=== PATIENT | female | born 1945 | race Caucasian/White ===

== ENCOUNTER 2020-04-08 10:22 | Outpatient (CLI) | payer OTHER, SELFPAY ==
--- NOTE | ~2020-04-08 | MM_ITS ---
EXAMINATION: MM screening janice BI w javon HISTORY: Screening mammogram TECHNIQUE: Craniocaudal and mediolateral oblique 3-D tomosynthesis images were obtained and synthetic 2-D images were generated. CAD analysis was submitted and interpreted. COMPARISON: 03/31/2019, 03/29/2018, 03/26/2017 bilateral digital screening mammogram examinations BREAST PARENCHYMAL COMPOSITION: There are scattered areas of fibroglandular density. FINDINGS: There is no evidence of suspicious mass, calcification, or architectural distortion to sugg est malignancy in either breast. There has been no suspicious interval change. IMPRESSION: 1. No mammographic evidence of malignancy. 2. Recommend routine screening mammography in one year. BI-RADS Category 1: Negative Reviewed, dictated and finalized at location A. L SANDER
== END 2020-04-08 10:23 | disposition home or self-care (01) ==
LOC: ANHIMG 10:26
PROVIDERS: PCP Internal Medicine; Visit Provider Obstetrics & Gynecology
DX: Z12.31 Encounter for screening mammogram for malignant neoplasm of breast (principal)
CPT/HCPCS: 77063; 77067

== ENCOUNTER → 2021-02-08 01:54 | Outpatient (CLI) | payer OTHER, SELFPAY ==
[2021-02-08 17:55] LABS: SARS-CoV-2 RNA PCR Negative
[2021-02-08 19:27] LABS: Influenza Control Positive
== END ==
PROVIDERS: PCP Internal Medicine; Visit Provider Internal Medicine
DX: R68.89 Other general symptoms and signs (principal); Z20.822 Contact with and (suspected) exposure to COVID-19
CPT/HCPCS: 87804; C9803; U0003; U0005

== ENCOUNTER → 2021-02-09 12:06 | Outpatient (CLI) | payer OTHER, SELFPAY ==
--- NOTE | ~2021-02-09 | XR_ITS ---
EXAMINATION: XR chest 2V EXAM DATE: 02/09/2021 12:18 INDICATION: R06.02 - Shortness of breath . TECHNIQUE: Frontal and lateral projections of the chest obtained and reviewed. Comparison is made to prior examination from 08/18/2014. FINDINGS: The lungs are clear. There are no pleural effusions. The cardiomediastinal silhouette is borderline in size. There is no pneumothorax suspected. The bones and soft tissues are unremarkable . There is no significant interval change. IMPRESSION: No acute cardiopulmonary findings. Reviewed, dictated and finalized at location A. CAL CODING TECHNICIAN
== END ==
PROVIDERS: PCP Internal Medicine; Visit Provider Nurse Practitioner
DX: R06.02 Shortness of breath (principal)
CPT/HCPCS: 71046

== ENCOUNTER 2021-04-26 08:01 | Outpatient (CLI) | payer OTHER, SELFPAY ==
--- NOTE | ~2021-04-26 | MM_ITS ---
EXAMINATION: MM screening janice BI w javon HISTORY: Screening TECHNIQUE: Craniocaudal and mediolateral oblique 3-D tomosynthesis images were obtained and synthetic 2-D images were generated. CAD analysis was submitted and interpreted. COMPARISON: Comparison to multiple prior studies sequentially, with oldest reviewed study dated 06/2015. BREAST PARENCHYMAL COMPOSITION: The breasts are almost entirely fatty. FINDINGS: There is no evidence of suspicious mass, calcification, or architectural distortion to sugg est malignancy in either breast. There has been no suspicious interval change. IMPRESSION: 1. No mammographic evidence of malignancy. 2. Recommend routine screening mammography in one year. BI-RADS Category 1: Negative Reviewed, dictated and finalized at location A. PATTERN REPAIRER
== END 2021-04-26 08:02 | disposition home or self-care (01) ==
LOC: ANHIMG 08:04
PROVIDERS: PCP Internal Medicine; Visit Provider Obstetrics & Gynecology
DX: Z12.31 Encounter for screening mammogram for malignant neoplasm of breast (principal)
CPT/HCPCS: 77063; 77067

== ENCOUNTER → 2021-08-11 12:17 | Outpatient (CLI) | payer OTHER, SELFPAY ==
--- NOTE | ~2021-08-11 | XR_ITS ---
EXAMINATION: XR lumbar spine 2-3V DATE: 08/11/2021 12:48 INDICATION: Dorsalgia TECHNIQUE: Standing AP, lateral and coned-down lateral lumbosacral views of the lumbar spine were obt ained. COMPARISON: 07/02/2014 FINDINGS: Increased now approximately 20 degrees lumbar levoscoliosis with partially visualized mild compensato ry lower thoracic dextrocurvature. 5 mm retrolisthesis L1 on L2, 3 mm anterolisthesis L4 on L5 and 5 mm anterolisthesis L5 on S1. Interval progression of moderate to severe disc height loss at L2-L3, mo derate to severe right-sided predominant disc height loss at L3-L4 and L4-L5 and moderate disc height loss at L5-S1. Mild bilateral hip and sacroiliac osteoarthritis. IMPRESSION: 1. Interval progression of both a mild S-shaped thoracolumbar scoliosis and moderate to severe spondy losis. Reviewed, dictated and finalized at location B. IMPRESSION: 1. Interval progression of both a mild S-shaped thoracolumbar scoliosis and mod erate to severe spondylosis.
== END ==
PROVIDERS: PCP Internal Medicine; Visit Provider Internal Medicine
DX: M16.0 Bilateral primary osteoarthritis of hip (principal); M47.898 Other spondylosis, sacral and sacrococcygeal region
CPT/HCPCS: 72100

== ENCOUNTER 2022-05-18 14:59 | Outpatient (CLI) | payer OTHER, SELFPAY ==
--- NOTE | ~2022-05-18 | MM_ITS ---
EXAMINATION: MM screening janice BI w javon HISTORY: Screening mammogram TECHNIQUE: Craniocaudal and mediolateral oblique 3-D tomosynthesis images were obtained and synthetic 2-D images were generated. CAD analysis was submitted and interpreted. COMPARISON: April 2021, April 08, 2020, March 31, 2019 bilateral screening mammogram examinati ons BREAST PARENCHYMAL COMPOSITION: There are scattered areas of fibroglandular density. FINDINGS: There is no evidence of suspicious mass, calcification, or architectural distortion to sugg est malignancy in either breast. There has been no suspicious interval change. IMPRESSION: 1. No mammographic evidence of malignancy. 2. Recommend routine screening mammography in one year. BI-RADS Category 1: Negative Reviewed, dictated and finalized at location A. NCT PROFESSOR OF ENGLISH
== END 2022-05-18 15:00 | disposition home or self-care (01) ==
PROVIDERS: PCP Internal Medicine; Visit Provider Obstetrics & Gynecology
DX: Z12.31 Encounter for screening mammogram for malignant neoplasm of breast (principal)
CPT/HCPCS: 77063; 77067

== ENCOUNTER 2023-07-24 09:36 | Outpatient (CLI) | payer OTHER, SELFPAY ==
--- NOTE | ~2023-07-24 | MM_ITS ---
EXAMINATION: MM screening janice BI w javon HISTORY: Screening mammogram TECHNIQUE: Craniocaudal and mediolateral oblique 3-D tomosynthesis images were obtained and synthetic 2-D images were generated. CAD analysis was submitted and interpreted. COMPARISON: 05/18/2022, 04/26/2021 bilateral screening mammogram examinations BREAST PARENCHYMAL COMPOSITION: There are scattered areas of fibroglandular density. FINDINGS: There is no evidence of suspicious mass, calcification, or architectural distortion to sugg est malignancy in either breast. There has been no suspicious interval change. IMPRESSION: 1. No mammographic evidence of malignancy. 2. Recommend routine screening mammography in one year. BI-RADS Category 1: Negative Reviewed, dictated and finalized at location B.
== END 2023-07-24 09:37 | disposition home or self-care (01) ==
PROVIDERS: PCP Family Medicine; Visit Provider Obstetrics & Gynecology
DX: Z12.31 Encounter for screening mammogram for malignant neoplasm of breast (principal)
CPT/HCPCS: 77063; 77067

== ENCOUNTER 2023-11-26 10:12 | Outpatient (CLI) | payer OTHER, SELFPAY ==
--- NOTE | ~2023-11-26 | DEXA_ITS ---
Bone Density Report Name: ALEX HOFFMAN Age: 78 Sex: Female Ethnicity: White Date of : 1945 Indication: postmenopausal; screening for osteoporosis; height loss; Referring Provider: LISSET BRODY Study: Bone densitometry was performed. Exam Date: November 26, 2023 Accession number: [id number] Bone Density: Region BMD T-score Z-score Classification AP Spine(L1-L4) 1.093 0.4 2.9 Normal Femoral Neck (Left) 0.613 -2.1 0.1 Osteopenia Total Hip (Left) 0.816 -1.0 0.9 Normal Femoral Neck (Right) 0.668 -1.6 0.5 Osteopenia Total Hip (Right) 0.831 -0.9 1.0 Normal Total Hip Mean 0.824 -1.0 1.0 Normal World Health Organization criteria for BMD impression classify patients as: Normal (T-score at or above -1.0), Osteopenia (T-score between -1.0 and -2.5), or Osteoporosis (T-score at or below -2.5). 10-year Fracture Risk(1): Major Osteoporotic Fracture 12% Hip Fracture 3.0% Reported Risk Factors: [place] (), Neck BMD=0.613, BMI=45.2 Input outside FRAX(R) limits. Adjusted to:Gwqcyl=147 kg (1) FRAX(R) Version 3.08. Fracture probability calculated for an untreated patient. Fracture probability may be lower if the patient has received treatment. Clinical Information Provided by Patient: Has used the following medications: Vitamin D, Calcium Patient maximum height was 68.0 No regular weight bearing exercise Drinks caffeinated beverages Onset of menses at age 14 Number of children 0 Impression: The patient has low bone mass, based on the Left Femoral Neck T-score. The patient has an estimated ten-year risk of hip fracture of 3% and an estimated ten-year risk of major fracture of 12%, based on the WHO FRAX algorithm. Discussion: BONE DENSITY IS LOW AT ONE OR MORE SKELETAL SITES. THE PATIENT'S BMD AND CLINICAL RISK FACTORS CONTRIBUTE TO THIS PATIENT'S INCREASED RISK OF FRACTURE. This patient's lowest T-score is low at one or more skeletal sites. It meets the World Health Organization's (WHO) criteria for ?low bone mass? (T-score between -1.0 and -2.5). The patient's 10-year risk of hip fracture as calculated by FRAX exceeds the threshold where pharmacological therapy is recommended by the National Osteoporosis Foundation (NOF). However, all treatment decisions require clinical judgment and consideration of individual patient factors, including patient preferences, comorbidities, previous drug use, risk factors not captured in the FRAX model (e.g., frailty, falls, vitamin D deficiency, increased bone turnover, interval significant decline in bone density) and possible under or overestimation of fracture risk by FRAX. The patient should follow a healthful lifestyle (good nutrition with adequate calcium and vitamin D, and appropriate weight-bearing exercise). Follow-Up: Consider
== END 2023-11-26 10:13 | disposition home or self-care (01) ==
LOC: ANHIMG 10:13
PROVIDERS: PCP Family Medicine; Referring Provider Obstetrics & Gynecology; Visit Provider Family Medicine
DX: M85.89 Other specified disorders of bone density and structure, multiple sites (principal); Z78.0 Asymptomatic menopausal state
CPT/HCPCS: 77080

== ENCOUNTER 2023-12-13 11:29 | Outpatient (CLI) | payer OTHER, SELFPAY ==
--- NOTE | ~2023-12-13 | XR_ITS ---
EXAM: XR ankle RT 2V, XR foot RT 2V DATE: 12/13/2023 11:44 HISTORY: M25.471 - Effusion, right ankle . COMPARISON: None available. FINDINGS: Decreased mineralization. No fracture or dislocation. No lytic or blastic lesion. Mild deg enerative change at the first MTP joint, multiple midfoot joints, and the ankle joint. Moderate plant ar enthesopathy. Loss of the longitudinal arch. No erosion or periosteal change. Soft tissues within normal limits. IMPRESSION: Osteopenia. 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 Pes planus . Reviewed, dictated and finalized at location K. IMPRESSION: Osteopenia. Mild polyarticular osteoarthritic arthritis of the ankl e and foot. Pes planus.
== END 2023-12-13 11:30 | disposition home or self-care (01) ==
LOC: MICIMG 11:30
PROVIDERS: PCP Family Medicine; Visit Provider Nurse Practitioner Family
DX: M79.671 Pain in right foot (principal); M25.471 Effusion, right ankle; M85.88 Other specified disorders of bone density and structure, other site; M19.071 Primary osteoarthritis, right ankle and foot; M21.41 Flat foot [pes planus] (acquired), right foot
CPT/HCPCS: 73600; 73620

== ENCOUNTER 2024-06-16 14:59 | Outpatient (CLI) | payer OTHER, SELFPAY ==
--- NOTE | ~2024-06-16 | XR_ITS ---
XR shoulder RT min 2V 06/16/2024 15:19 Indication: Right shoulder Procedure: 4 views right shoulder Comparison: No prior studies for comparison. Findings: No fracture, subluxation or dislocation. There is anatomic alignment. No soft tissue abnorm ality. No foreign bodies. Impression: 1: No significant bone or joint abnormality. Reviewed, dictated and finalized at location A. Impression: 1: No significant bone or joint abnormality.
== END 2024-06-16 15:00 | disposition home or self-care (01) ==
LOC: MICIMG 15:01
PROVIDERS: PCP Family Medicine; Visit Provider Family Medicine
DX: M25.511 Pain in right shoulder (principal)
CPT/HCPCS: 73030

== ENCOUNTER 2024-07-25 08:50 | Outpatient (CLI) | payer OTHER, SELFPAY ==
--- NOTE | ~2024-07-25 | MM_ITS ---
EXAMINATION: MM screening janice BI w javon HISTORY: Screening TECHNIQUE: Craniocaudal and mediolateral oblique 3-D tomosynthesis images were obtained and synthetic 2-D images were generated. CAD analysis was submitted and interpreted. COMPARISON: Comparison to multiple prior studies sequentially, with oldest reviewed study dated 03/29. BREAST PARENCHYMAL COMPOSITION: Not Dense: The breasts are almost entirely fatty. FINDINGS: There is no evidence of suspicious mass, calcification, or architectural distortion to sugg est malignancy in either breast. There has been no suspicious interval change. IMPRESSION: 1. No mammographic evidence of malignancy. 2. Recommend routine screening mammography in one year. BI-RADS Category 1: Negative Reviewed, dictated and finalized at location A.
--- OUTSIDE RECORDS SUMMARY | 2024-07-25 08:53 | XMS_ITS | Encounter Summary ---
Author Organization [facility] Address [facility] [place] [address] Care Team Providers Care Cotton Weigher Name Role Phone Vidal Zendejas MD Primary Care Provider [phone] Reason for Visit * Reason Comments Shoulder Pain Right * Physical Therapy (Routine) - Authorized Specialty Diagnoses / Procedures Referred By Karissa bustillo Referred To Contact PHYSICAL THERAPY / [facility] Physical Therapy Diagnoses pain right shoulder Procedures Vidal Sahni MD [address] [place] [address] Phone: tel: fax: [facility] [address] [place] [address] Phone: tel: fax: Referral ID Status Reason Start Date Expiration Date Visits Requested Visits Authorized [id number] Authorized Physical Therapy 07/10/2024 99 99 Encounter Details Date Type Department Care Team (Late [facility]) Description 07/23/2024 10:50 AM CDT - 07/23/2024 11:59 PM T Hospital Encounter [facility] [address] [place] [address] Vidal Zendejas MD [address] [place] [address] Kimberly Chester PTA Shoulder Pain (Right) Discharge Disposition: Home or Self Care (Routine Discharge) Social History Tobacco Use Types Packs/Day Years Used Date Smoking Tobacco: Never Assessed Comments Unknown Sex and Gender Information Value Date Recorded Sex Assigned at Female 06/27/2024 2:12 PM CDT Legal Sex Female 4:11 PM CDT Gender Identity Not on file Sexual Orientation Not on file documented as of this encounter Progress Notes * Kimberly Chester, CAKE INSPECTOR - 07/23/2024 11:00 AM CDT Physical Therapy Visit Note: Patient Name: Patti Cifuentes Diagnosis: Right shoulder pain (primary encounter diagnosis) SUBJECTIVE Therapy Visit Start Time: 1102 Stop Time: 1146 Time Calculation (min): 44 min Treatment Day: 3 Total Approved Visits: up to 16 per POC/base off medical necessity per ins Authorization Expiration Date: no exp per ins Therapy Plan of Care: 2x/wk for 4-8 wks Current Therapy Orders: eval and treat Diagnosis: R shoulder pain Referring Provider: Dr Youssef Consulting Provider: Dr Portillo (ortho) Next MD Visit: 11/19/24 PCP, 08/06/24 Dr Portillo Date of Injury: onset late Apr 2024 Job Duties: retired Hand Dominance: Right Subjective Note: The medicine that I take masks the symptoms. I try to be careful with it to avoid increase insymptoms. It is better than it was previously. Compliance to Home Program: yes Reported Falls since last visit: 0 Medications changes since last visit : 0 Pain Current Location of Pain: R deltoid region OBJECTIVE Treatment provided today: Therapeutic Exercise - 29155 Number of Minutes - 57961: 44 Supine (Reps/Sets): *use bolster if supine laying - has h/o LBP Exercise: Pulleys: x2 min each butterfly, ABD Exercise: Wallslide W with towel x10 each Exercise: Wall push ups x10 reps with TC for scap retraction Exercise: Table top AAROM: R SH ER, flex, and scap x10 reps each Exercise: Cable column rows, SH EXT, SH ER, SH IR 10# each x 10 each Exercise: Back vs wall snow daljit x 10 Exercise: next - facing wall and 3 point movements with band Exercise: Standing OH press with hand weight x 10 - lots of cues for proper technique Exercise: SH flex with hand weight 1# x10 Exercise: Finger ladder flex (28) and scap (28) x 5 each Exercise: Ball pass around trunk CW/CCW x 10 small frog ball Exercise: gentle MTT through clothing to the deltoids (areas of pain) x 5' Education Was Education Provided: Yes Topic: HEP, discussing with MD regarding meds Recipient: Patient Method: Demonstration, Verbal, Written, Return Demonstration Response: Asked questions, Verbalized understanding Barriers: None ASSESSMENT Assessment Note: Patti is unable to position SHs against wall to perform snow angels so her position is modified. This is the same with positioning for OH press. Initiated CC ther ex. She struggled with ER, (dueto the weight) but wanted to continue. May need to use TB at next session depending on her symptomsat next visit. She is concerned with the effects of the meds may have on her, especially the dicloflenac. Response to Treatment : It feels ok. Continue on Functional Deficit of: Decreased SH ROM, decreased strength, SH pain, limited use R SH PLAN Plan Next Visit Plan: Progress activities as per flowsheet as able. May use MTT and/or modalities as needed. Total Time Total Time in Minutes: 44 Timed Code Treatment Minutes : 44 documented in this encounter Plan of Treatment Upcoming Encounters Date Type Department Care Team (Late st Contact Info) Description 07/28/2024 9:45 AM CDT Appointment [facility] [address] [place] [address] Vidal Zendejas MD [address] [place] [address] Pita Laboy, CELI 07/29/2024 9:00 AM CDT Appointment [facility] [address] [place] [address] Vidal Zendejas MD [address] [place] [address] Pilar Ceballos, CAKE INSPECTOR 08/06/2024 9:45 AM CDT Appointment [facility] [address] [place] [address] Vidal Zendejas MD [address] [place] [address] Kimberly ChesterCELI 08/08/2024 10:00 AM CDT Appointment [facility] [address] [place] [address] Vidal Zendejas MD [address] [place] [address] [place] [address] [place], [place] [id number] documented as of this encounter Visit Diagnoses Diagnosis Right shoulder pain- Primary Pain in joint, shoulder region documented in this encounter Care Teams Cotton Weigher Relationship Specialty Start Date End Date Vidal Zendejas MD [address] [place] [address] PCP - General FAMILY PRACTICE 06/27/24 documented as of this encounter
--- OUTSIDE RECORDS SUMMARY | 2024-07-25 08:53 | XMS_ITS | Clinical Summary ---
Author Organization [facility] Address [address] [place] [address] Care Team Providers Care Marine Insulator Name Role Phone Vidal Zendejas MD Primary Care Provider [phone] Active Problems Problem Noted Date Diagnosed Date Right shoulder pain 07/10/2024 Encounters Date Type Department Care Team Description 07/23/2024 10:50 AM CDT - 07/23/2024 11:59 PM CDT Hospital Encounter [facility] [address] [place] [address] Vidal Zendejas MD Sackett, Kim, CELI Shoulder Pain (Right) Discharge Disposition: Home or Self Care (Routine Discharge) 07/23/2024 Travel 07/22/2024 9:45 AM CDT - 07/22/2024 11:59 PM CDT Hospital Encounter [facility] [address] [place] [address] Vidal Zendejas MD Arentsen, Anita A, [place] MASSEUSE Joint Pain/Shoulder region Discharge Disposition: Home or Self Care (Routine Discharge) 07/22/2024 Travel 07/10/2024 2:42 PM CDT - 07/10/2024 11:59 PM CDT Hospital Encounter [facility] [address] [place] [address] Vidal Zendejas MD Irving, Christy L, PT Shoulder Pain Discharge Disposition: Home or Self Care (Routine Discharge) 07/10/2024 Travel from Last 3 Months Immunizations Immunization Administration Dates Next Due MODERNA COVID-19 (12+) MRNA, LNP-S, PF, 100 MCG/ 0.5 ML DOSE 04/14/2020,03/17/2020 Social History Tobacco Use Types Packs/Day Years Used Date Smoking Tobacco: Never Assessed Comments Unknown Sex and Gender Information Value Date Recorded Sex Assigned at Female 06/27/2024 2:12 PM CDT Legal Sex Female 4:11 PM CDT Gender Identity Not on file Sexual Orientation Not on file Plan of Treatment Upcoming Encounters Date Type Department Care Team (Late st Contact Info) Description 07/28/2024 9:45 AM CDT Appointment [facility] [address] [place] [address] Vidal Zendejas MD [address] [place] [address] Pita Laboy, SWED[place] MASSEUSE 07/29/2024 9:00 AM CDT Appointment [facility] [address] [place] [address] Vidal Zendejas MD [address] [place] [address] Pilar Ceballos, SW[place] MASSEUSE 08/06/2024 9:45 AM CDT Appointment [facility] [address] [place] [address] Vidal Zendejas MD [address] [place] [address] Kimberly Chester, SW[place] MASSEUSE 08/08/2024 10:00 AM CDT Appointment [facility] [address] [place] [address] Vidal Zendejas MD [address] [place] [address] [place] [address] [place] [address] Health Maintenance Due Date Last Done Comments Hepatitis C 1963 DTaP, Tdap and Td Vaccines ( 1 - Tdap) 1965 Zoster Vaccines (1 of 2) 1996 Annual Medicare Wellness Visit 10/12/2011 Dexa Scan (General) 10/12/2011 Pneumococcal Vaccine: 50+ Years (2 of 2 - PPSV23) 12/23/2020 12/24/2019 RSV Immunization or 60+ Years (1 - 1-dose 75+ series) 2021 COVID-19 Vaccine (3 - 2023-2 5 season) 2023 04/14/2020, 03/17/2020 Meningococcal B Vaccine Aged Out No l onger eligible based on patient's age to complete this topic Meningococcal Vaccine Aged Out No bessie mary eligible based on patient's age to complete this topic RSV Immunizations Under 20 Months Aged Out No longer eligible b ased on patient's age to complete this topic Insurance ESSENCE Care Teams Marine Insulator Relationship Specialty Start Date End Date Vidal Zenedjas MD [address] [place] [address] PCP - General FAMILY PRACTICE 06/27/24
== END 2024-07-25 08:51 | disposition home or self-care (01) ==
LOC: ANHIMG 08:52
PROVIDERS: PCP Family Medicine; Visit Provider Obstetrics & Gynecology
DX: Z12.31 Encounter for screening mammogram for malignant neoplasm of breast (principal)
CPT/HCPCS: 77063; 77067